=== PATIENT | female | born 1960 | race African-American/Black ===

== ENCOUNTER 2020-08-23 06:40 | Inpatient (IN) | payer OTHER ==
[~2020-08-23] VITALS: Ht 162.6 cm; Wt 103.9 kg
[~2020-08-23 06:40] MED LIST: ACETAMINOPHEN-1 EAC1 PO; ALBUTEROL INHAL17 GM IH; AMPICILLIN PO; ATIVAN0.5 MG; ATIVAN0.5 MG PO; AUGMENTIN 875875 M1; AVELOX400 MG PO; DILANTIN100 MG PO; DITROPAN XL5 M1 PO; HALDOL 0.5 MG0.5 MG PO; HALOPERIDOL; HALOPERIDOL 5 MG5 MG PO; HYDROCHLOROTH12.5 MG PO; HYDROCODON-ACE1 EAC7; HYDROCODON-ACE1 EACH PO; IBUPROFEN 400400 M1 PO; LORTAB 5 MG/5001 TA1 PO; MEDROL DOSPAK21 TA1 PO; MUCINEX DM ER1 EAC1 PO; NASONEX17 GM NASAL; OXYBUTYNIN 5 MG5 M1 PO; PHENOBARBITAL60 MG PO; PRINIVIL20 MG PO; PROAIR HFA8.5 GM PO; QUESTRAN LIGHT P4 GM PO; ROBITUSSIN DM118 ML; SENNA S TABLET1 EACH; TESSALON PERLE100 MG PO; ZANTAC 150MG T150 M1 PO; ZPAK PO
[2020-08-23 06:59] VITALS: BP 137/76
[2020-08-23 07:12] LABS: ABSOLUTE NEUTROPHILS 3.8 thou/uL (1.4-8.2); BASOPHILS 0.4 % (0.0-2.0); HEMATOCRIT 40.3 % (37.0-47.0); HEMOGLOBIN 13.6 gm/dL (12.0-15.0); LYMPHOCYTES 7.7 % (24.0-44.0); MCH 31.5 pg (26.0-34.0); MCHC 33.8 g/dL (28.0-37.0); MCV 93.3 fL (80.0-100.0); MONOCYTES 8.5 % (1.0-8.0); PLATELET COUNT 164 thou/uL (150-400); POLYS 83.4 % (36.0-66.0); RBC 4.32 mil/uL (4.20-5.00); RDW 13.6 % (10.5-14.5); WBC 4.5 thou/uL (4.0-11.0)
[2020-08-23 07:22] LABS: CALCIUM 8.6 mg/dL (8.5-10.1); POTASSIUM 3.3 mmol/L (3.5-5.1)
[2020-08-23 07:28] LABS: ALBUMIN 3.7 g/dL (3.4-5.0); DIRECT BILIRUBIN 0.1 mg/dL (<0.1-0.2); TOTAL BILIRUBIN 0.3 mg/dL (0.2-1.0); TOTAL PROTEIN 7.8 g/dL (6.4-8.2)
[2020-08-23 07:56] LABS: URINE BILIRUBIN NEGATIVE (Negative); URINE BLOOD NEGATIVE (Negative); URINE CLARITY CLEAR; URINE COLOR YELLOW; URINE GLUCOSE-RANDOM* NEGATIVE (Negative); URINE KETONES NEGATIVE (Negative); URINE LEUKOCYTES-REFLEX NEGATIVE (Negative); URINE NITRITE-REFLEX NEGATIVE (Negative); URINE PROTEIN (DIPSTICK) 2+ (Negative)
[2020-08-23 08:04] LABS: BACTERIA-REFLEX 1-9 Few /HPF (None Seen); CASTS None Seen /LPF (None Seen); CRYSTALS None Seen /LPF (None Seen); SQUAMOUS 4-10 Moderate /LPF (0-3); URINE RBC 0-2 Rare /HPF (0-2); URINE WBC-REFLEX 0-5 Rare /HPF (0-5)
[2020-08-23] MEDS ORDERED: LOSARTAN POTASS50 MG PO (09:15)
[2020-08-23] MEDS ORDERED: FUROSEMIDE 40 M40 MG PO (09:15)
[2020-08-23] MEDS ORDERED: POTASSIUM20 PO (09:16)
[2020-08-23] MEDS ORDERED: PRAVASTATIN SOD20 MG PO (09:17)
[2020-08-23] MEDS ORDERED: VENTOLIN HFA 1818 GM INH (09:17)
[2020-08-23 18:54] VITALS: BP 141/82
[2020-08-23 19:36] VITALS: BP 135/83
[2020-08-23 19:50] VITALS: BP 160/96
[2020-08-23 23:53] VITALS: BP 139/79
[2020-08-24 03:05] VITALS: BP 144/82
--- NOTE | 2020-08-24 05:30 | NUR ---
PT ARRIVED VIA CART, PLACED IN ROOM 351. ADMISSION ASSESSMENTS COMPLETED. NOTED TO BE FEVERISH OVERNIGHT. TYLENOL GIVEN FOR BACK PAIN. PT LESS FEVERISH THIS AM WITH 99.4 ORAL TEMP. SEE CHARTING.
[2020-08-24 07:39] VITALS: BP 126/65
[2020-08-24 07:49] LABS: ABSOLUTE NEUTROPHILS 2.8 thou/uL (1.4-8.2); BASOPHILS 0.3 % (0.0-2.0); HEMATOCRIT 41.6 % (37.0-47.0); HEMOGLOBIN 13.8 gm/dL (12.0-15.0); LYMPHOCYTES 18.9 % (24.0-44.0); MCH 31.3 pg (26.0-34.0); MCHC 33.2 g/dL (28.0-37.0); MCV 94.4 fL (80.0-100.0); MONOCYTES 5.7 % (1.0-8.0); PLATELET COUNT 165 thou/uL (150-400); POLYS 75.1 % (36.0-66.0); RBC 4.41 mil/uL (4.20-5.00); RDW 13.7 % (10.5-14.5); WBC 3.7 thou/uL (4.0-11.0)
[2020-08-24 07:58] LABS: PROTIME 10.1 Seconds (9.3-11.4)
[2020-08-24 08:06] LABS: ALBUMIN 3.4 g/dL (3.4-5.0); CALCIUM 8.3 mg/dL (8.5-10.1); CREATININE 0.8 mg/dL (0.6-1.0); DIRECT BILIRUBIN 0.1 mg/dL (<0.1-0.2); PHOSPHORUS 4.2 mg/dL (2.5-4.9); POTASSIUM 3.5 mmol/L (3.5-5.1); TOTAL BILIRUBIN 0.2 mg/dL (0.2-1.0); TOTAL PROTEIN 7.4 g/dL (6.4-8.2)
[2020-08-24 08:35] LABS: FIBRINOGEN 433.4 mg/dL (210-360)
[2020-08-24 14:54] VITALS: BP 145/83
--- NOTE | 2020-08-24 15:19 | NUR ---
INITIAL ASSESSMENT: ROCIO reviewed chart and spoke with nursing and attending physician. Pt was admitted from [facility] due to fever. Pt had positive COVID test and is in Enhanced Isolation. Pt is on 2L of O2. Pt is on IV abx and IV steroids. Course of Remdesivir started. ROCIO placed call to pt's room. No answer. Pt with hx of MR and schizophrenia. ROCIO spoke with James at [facility]. Pt is normally independent with ADLs and does not use any DME for ambulation or home O2. Pt has been using an inhaler. Pt's PCP is Dr. Mathew Hooks. Pt has had negative COVID tests at the facility. Per James, pt's cousin, Kimberlee, is involved in pt's care. ROCIO left voice message for Kimberlee. ROCIO is following to assist as needed with discharge planning.
--- NOTE | 2020-08-24 16:45 | NUR ---
RN ASSUMED PT'S CARE AT 0700AM, PT IS A&OX3, PT IS ON O2 2L/MIN/NC, PT IS CONTINUING IV ABX, PT'S VS ARE STABLE, PT DENIES SOB AND N/V BY THIS TIME.
[2020-08-24 21:19] VITALS: BP 125/78
[2020-08-25 03:55] VITALS: BP 120/75
--- NOTE | 2020-08-25 06:01 | NUR ---
PT MAKING POOR PROGRESS TOWARDS GOALS. NOTED FEVERS OVERNIGHT. PT HAD BLANETS REMOVED FROM BED WHICH LED TO PTS FEVER COMING DOWN. CONTINUE TO MONITOR AND ENCOURAGE LACK OF BLANKETS UNTIL FEVER RESOLVES.
[2020-08-25 06:04] LABS: ALBUMIN 2.9 g/dL (3.4-5.0); ANION GAP 11 mmol/L (7-16); BUN 11 mg/dL (7-18); CALCIUM 8.3 mg/dL (8.5-10.1); CHLORIDE 105 mmol/L (98-107); CO2 25 mmol/L (21-32); CREATININE 0.7 mg/dL (0.6-1.0); DIRECT BILIRUBIN < 0.1 mg/dL (<0.1-0.2); GLUCOSE 99 mg/dL (74-106); SGOT 88 U/L (15-37); SGPT 62 U/L (30-65); SODIUM 141 mmol/L (136-145); TOTAL BILIRUBIN 0.4 mg/dL (0.2-1.0); TOTAL PROTEIN 6.9 g/dL (6.4-8.2)
[2020-08-25 07:21] VITALS: BP 127/71
[2020-08-25 09:15] VITALS: BP 141/82
--- NOTE | 2020-08-25 14:33 | NUR ---
SW reviewed chart and spoke with nursing and attending physician. Pt remains in Enhanced Isolation due to COVID-19. Pt was febrile overnight and is on 2L of O2. Pt is on IV abx and IV steroids. Pt is completing course of Remdesivir. SW spoke with pt's cousin, Kimberlee, via phone. Introduced role of SW. Pt's cousin states that she and her mother are supportive and involved in pt's care. Pt makes her own medical/financial decisions. Pt with hx of MR. Mohan states that pt's sister, Ruthann Gaines, (Kimberlee's mother) is next of kin. Pt's parents and other siblings are . SW provided update to Kimberlee, as she was unaware of pt testing positive for COVID. SW discussed possible need for SNF placement prior to returning to [facility]. Pt's sister verbalized understanding. Therapy to be ordered to evaluate pt for discharge needs. SW is following to assist as needed with discharge planning.
--- NOTE | 2020-08-25 15:43 | NUR ---
RN ASSUMED PT'S CARE AT 0700AM, PT IS A&OX3, PT CAN FOLLOW COMMANDS, BUT PT RESPONSE SLOWING, PT IS CONTINUING IV ABX, AND O2 2L/MIN/NC, PT NEEDS HELP ADL, PT DENIES SOB AND PAIN AT THIS TIME.
[2020-08-25 15:54] VITALS: BP 109/59
[2020-08-25 19:49] VITALS: BP 132/80
[2020-08-26 03:22] VITALS: BP 140/86
--- NOTE | 2020-08-26 05:42 | NUR ---
PT MAKING SLOW PROGRESS TOWARDS GOALS. ON O2 AT 2L PER NC OVERNIGHT. DENIED ANY SOA WHILE AT REST. STATES SHE FEELS LIKE SHE IS BREATHING EASIER THAN YESTERDAY.
[2020-08-26 07:26] VITALS: BP 138/87
[2020-08-26 07:27] LABS: HEMATOCRIT 40.9 % (37.0-47.0); HEMOGLOBIN 13.4 gm/dL (12.0-15.0); MCH 31.2 pg (26.0-34.0); MCHC 32.8 g/dL (28.0-37.0); MCV 95.1 fL (80.0-100.0); RBC 4.3 mil/uL (4.20-5.00); RDW 13.7 % (10.5-14.5); WBC 2.9 thou/uL (4.0-11.0)
[2020-08-26 10:43] LABS: CALCIUM 8.5 mg/dL (8.5-10.1); CREATININE 0.7 mg/dL (0.6-1.0); DIRECT BILIRUBIN 0.2 mg/dL (<0.1-0.2); PHOSPHORUS 3.6 mg/dL (2.5-4.9); POTASSIUM 4.2 mmol/L (3.5-5.1); TOTAL BILIRUBIN 0.2 mg/dL (0.2-1.0); TOTAL PROTEIN 6.8 g/dL (6.4-8.2)
[2020-08-26 11:20] VITALS: BP 124/77
[2020-08-26 15:23] VITALS: BP 127/81
--- NOTE | 2020-08-26 15:37 | NUR ---
SW reviewed chart and spoke with nursing and attending physician. Pt remains in Enhanced Isolation due to COVID-19. Pt is afebrile and on 2L of O2. Pt is on IV abx and IV steroids. Pt is completing course of Remdesivir. PT/OT ordered today to evaluate pt for discharge needs. SW is following to assist as needed with discharge planning.
--- NOTE | 2020-08-26 16:15 | NUR ---
ASSUMED CARE OF PT AT 0700. PT ALERT AND ORIENTED X2 IN NO ACUTE DISTRESS VOICING NO PARTICULAR CONCERNS. BREATHING COMFORTABLY ON 2L NC. INCONTINENT OF URINE. IV ABX INFUSING PER ORDER.
[2020-08-26 19:42] VITALS: BP 127/75
--- NOTE | 2020-08-27 02:51 | NUR ---
ENCOURAGED TURNS, SHE IS NOT MOVVING MUCH IN THE BED. DENIES PAIN. SHE IS NEEDING TO BREATH DEEP AND COUGH. CONTINUES ON IV ANTIBIOTICS. RESTING QUIETLY AT THIS TIME.
[2020-08-27 03:30] VITALS: BP 141/90
--- NOTE | 2020-08-27 07:23 | NUR ---
BPCI LETTER ISSUED IN CONJUNCTION WITH ADMISSION PACKET COPY GIVEN BY REGISTRATION
[2020-08-27 08:37] LABS: HEMATOCRIT 44.3 % (37.0-47.0); HEMOGLOBIN 14.5 gm/dL (12.0-15.0); MCH 31.1 pg (26.0-34.0); MCHC 32.7 g/dL (28.0-37.0); RBC 4.67 mil/uL (4.20-5.00); RDW 13.9 % (10.5-14.5)
[2020-08-27 08:41] LABS: WBC 2.8 thou/uL (4.0-11.0)
[2020-08-27 08:56] LABS: ALBUMIN 3.1 g/dL (3.4-5.0); CALCIUM 8.6 mg/dL (8.5-10.1); CREATININE 0.5 mg/dL (0.6-1.0); DIRECT BILIRUBIN 0.1 mg/dL (<0.1-0.2); PHOSPHORUS 4.6 mg/dL (2.6-4.7); POTASSIUM 4.5 mmol/L (3.5-5.1); TOTAL BILIRUBIN 0.1 mg/dL (0.2-1.0); TOTAL PROTEIN 6.9 g/dL (6.4-8.2)
[2020-08-27 14:57] VITALS: BP 130/70
--- NOTE | 2020-08-27 17:49 | NUR ---
ASSUMED CARE OF PT AT 0700. PT ALERT AND ORIENTED TO SITUATION, IN NO ACUTE DISTRESS. UP TO CHAIR WITH MEALS. WEANED TO ROOM AIR. MAINTAIN SPO2 > 92%. DENIES SOA. LIKELY D/C TOMORROW.
[2020-08-27 20:15] VITALS: BP 146/77
[2020-08-28 04:06] VITALS: BP 160/101
--- NOTE | 2020-08-28 05:06 | NUR ---
continues on room air, o2 sats in the mid to upper 90's . denies pain. encouraged turning side to side. careplan reviewed. aware of possible discharge today, back to [facility].
[2020-08-28 06:24] LABS: HEMATOCRIT 39.4 % (37.0-47.0); HEMOGLOBIN 13.3 gm/dL (12.0-15.0); MCH 31.4 pg (26.0-34.0); MCHC 33.7 g/dL (28.0-37.0); MCV 93.2 fL (80.0-100.0); RBC 4.22 mil/uL (4.20-5.00); RDW 13.4 % (10.5-14.5); WBC 2.6 thou/uL (4.0-11.0)
[2020-08-28 06:57] LABS: ALBUMIN 2.8 g/dL (3.4-5.0); CALCIUM 8.5 mg/dL (8.5-10.1); CREATININE 0.5 mg/dL (0.6-1.0); DIRECT BILIRUBIN 0.1 mg/dL (<0.1-0.2); PHOSPHORUS 3.7 mg/dL (2.5-4.9); POTASSIUM 4.2 mmol/L (3.5-5.1); TOTAL BILIRUBIN 0.3 mg/dL (0.2-1.0); TOTAL PROTEIN 6.4 g/dL (6.4-8.2)
[2020-08-28 08:30] VITALS: BP 153/85
[2020-08-28 11:28] VITALS: BP 125/67
--- NOTE | 2020-08-28 12:54 | NUR ---
DISCHARGE NOTE: ROCIO reviewed chart and spoke with nursing and attending physician. Pt remains in Enhanced Isolation due to COVID-19. Pt is medically stable to discharge back to [facility] today. ROCIO spoke with James charge weigher at the facility to provide update. ROCIO spoke with Lan, [employer] ([phone]) to discuss pt returning. Pt is able to return to the facility, as they have other residents who are also COVID positive. Awaiting final discharge orders/summary at this time. Pt is able to be transported via w/c van. ROCIO placed call to pt's room. Line is busy. ROCIO left voice message for pt's cousin, Kimberlee, regarding discharge plan. Chart copy requested. ROCIO is following to finalize discharge.
[2020-08-28] MEDS ORDERED: CEFDINIR300 MG PO (13:00)
[2020-08-28] MEDS ORDERED: PREDNISONE 10 M10 M1 PO (13:02)
[2020-08-28] MEDS ORDERED: FUROSEMIDE 40 M40 MG PO (13:05)
[2020-08-28 13:56] VITALS: BP 125/67
[2020-08-28 15:20] VITALS: BP 127/77
== END 2020-08-28 17:21 | DRG 871 ==
LOC: ER 06:40 → 3W 08:36 → EROBS 08:36 → 3W 19:36
PROVIDERS: Emergency Medicine; Hospitalist; Specialist; ADMIT Internal Medicine; ATTEND Internal Medicine
PROC: XW033E5 Introduction of Remdesivir Anti-infective into Peripheral Vein, Percutaneous Approach, New Technology Group 5 (ICD-10-PCS; principal; 2020-08-23)
DX: A41.89 Other specified sepsis (principal); U07.1 COVID-19; J12.89 Other viral pneumonia; I10 Essential (primary) hypertension; E78.5 Hyperlipidemia, unspecified; G40.909 Epilepsy, unspecified, not intractable, without status epilepticus; F20.9 Schizophrenia, unspecified; E66.9 Obesity, unspecified; F79 Unspecified intellectual disabilities; Z79.899 Other long term (current) drug therapy; Z90.49 Acquired absence of other specified parts of digestive tract; Z68.37 Body mass index [BMI] 37.0-37.9, adult
CPT/HCPCS: 10080; 10879

== ENCOUNTER 2021-08-11 22:17 | Emergency (ER) | payer OTHER ==
[~2021-08-11] VITALS: Ht 162.6 cm; Wt 102.5 kg
--- NOTE | ~2021-08-11 | EMS ---
[address] [address] EMS Patient Care Report Name: NELDA FRAGOSO Room #: REG CLAYTON Plascencia#: [id number] Admission: 08/11/21 Attend Phys: Discharge: Date of : 58 Report #: [id number] THIS REPORT FOR: //name// Report Transmitted: 08/11/2021 21:42 EMS Care Summary [place], [place]/[facility] Incident [id number] @ 08/11/2021 21:48 Incident Location [address] [place] [address] Patient NELDA FRAGOSO Female, 61 Years 1960 Patient Address Patient History Diabetes,Hypertension (HTN),Seizures,Hyperlipidemia,Schizophrenia, Patient Allergies No known allergies, Patient Medications Pravastatin, Furosemide, Albuterol, Haloperidol, Oxybutynin, Phenobarbital, Spironolactone, Chief Complaint NO PT COMPLAINT Disposition Transported No Lights/[place] Dispatch Reason No Other Appropriate Choice Transported To [facility] Narrative M537 ARRIVED ON SCENE TO A ABNORMAL VITAL SIGNS CALL. PTS DOCTOR ON SCENE STATED THAT HE WAS DOING HER ASSESSMENT TODAY HE NOTICED THAT HER PULSE WAS ELEVATED AND THAT SHE HAD DIMINISHED LUNG SOUNDS IN THE LOWER LOBES AND WOULD LIKE HER SENT OUT FOR FURTHER ASSESSMENT. PT HAD NO MEDICAL COMPLAINTS. PT WAS LOADED ONTO STRETCHER AND SECURED WITH ALL STRAPS. PT LOADED INTO AMBULANCE AND VITALS ASSESSED ON SCENE. UPON ARRIVAL TO ED PT WAS BROUGHT INSIDE TO ROOM [address] [address] EMS Patient Care Report Name: NELDA FRAGOSO Room #: REG M.R.#: [id number] Admission: 08/11/21 Attend Phys: Discharge: Date of : 58 Report #: [id number] AND VERBAL REPORT GIVEN TO RN. PT CARE TRANSFERRED. M537 RETURN IN SERVICE. Initial Vitals @22:09P: 99,BP: 132/82,CO: 2,SpO2: 92, @22:02P: 90,R: 14,BP: 131/77,Pain: 0/10,GCS: 14,Glucose: 240,SpO2: 95,Revised Trauma: 12, Assessments @22:00MENTAL:Person Oriented,Place Oriented,SKIN:HEENT:LUNG SOUNDS:ABDOMEN:PELVIS//GI:EXTREMITIES:PULSE:NEURO: Impression Cardiac arrhythmia/dysrhythmia Procedures @22:00 ALS Assessment Response: UnchangedSucceeded @22:01 Stretcher Response: Unchanged Timeline 21:46,Call Received 21:46,Dispatch Notified 21:48,Dispatched 21:49,En Route 21:57,On Scene 21:59,At Patient 22:00,ALS Assessment,Response: UnchangedSucceeded, 22:01,Stretcher,Response: Unchanged 22:02,BP: 131/77 M,PULSE: 90,RR: 14 R,SPO2: 95 Ox,ETCO2: ,B,PAIN: 0,GCS: 14, 22:05,Depart Scene 22:09,BP: 132/82 M,PULSE: 99,RR: R,SPO2: 92 Ox,ETCO2: ,BG: ,PAIN: ,GCS: , 22:22,At Destination 22:40,Call Closed Disclaimer v1.1 Copyright 202 [employer] This EMS Care Summary contains data elements from the applicable legal record (which may be displayed differently). It is designed to provide pertinent information for the following purposes: continuity of care, clinical quality, and state data reporting. The complete legal record is available to ED staff and administrators of the receiving hospital in [employer]'s Patient Tracker. All data is provided "as is."
[~2021-08-11 22:17] MED LIST changes: +CEFDINIR300 MG PO; +FUROSEMIDE 40 M40 MG PO; +LOSARTAN POTASS50 MG PO; +POTASSIUM20 PO; +PRAVASTATIN SOD20 MG PO; +PREDNISONE 10 M10 M1 PO; +VENTOLIN HFA 1818 GM INH
[2021-08-11] MEDS ORDERED: ACETAMINOPHEN PO (22:21)
[2021-08-11] MEDS ORDERED: ENGERIX B IM (22:22)
[2021-08-11] MEDS ORDERED: SPIRONOLACTONE50 MG PO (22:22)
[2021-08-11 23:07] LABS: URINE BILIRUBIN NEGATIVE (Negative); URINE BLOOD NEGATIVE (Negative); URINE CLARITY CLEAR; URINE COLOR YELLOW; URINE GLUCOSE-RANDOM* NEGATIVE (Negative); URINE KETONES NEGATIVE (Negative); URINE LEUKOCYTES-REFLEX NEGATIVE (Negative); URINE NITRITE-REFLEX NEGATIVE (Negative); URINE PROTEIN (DIPSTICK) TRACE (Negative); URINE SPECIFIC GRAVITY >= 1.030 (1.005-1.035); URINE UROBILINOGEN 0.2 E.U./dl (0.2-1.0)
[2021-08-11 23:11] LABS: HEMATOCRIT 39.2 % (37.0-47.0); HEMOGLOBIN 13.2 gm/dL (12.0-15.0); MCH 31.5 pg (26.0-34.0); MCHC 33.6 g/dL (28.0-37.0); MCV 93.8 fL (80.0-100.0); PLATELET COUNT 188 thou/uL (150-400); RBC 4.17 mil/uL (4.20-5.00); RDW 13.4 % (10.5-14.5); WBC 4.4 thou/uL (4.0-11.0)
[2021-08-11 23:17] LABS: CALCIUM 8.4 mg/dL (8.5-10.1); CREATININE 0.9 mg/dL (0.6-1.0)
[2021-08-11 23:28] LABS: ALBUMIN 3.3 g/dL (3.4-5.0); TOTAL BILIRUBIN 0.2 mg/dL (0.2-1.0); TOTAL PROTEIN 7.2 g/dL (6.4-8.2)
[2021-08-12] MEDS ORDERED: NYSTATIN 100,0015 G1 TOP (00:06)
[2021-08-12 00:38] LABS: ABSOLUTE NEUTROPHILS 2.6 thou/uL (1.4-8.2)
[2021-08-12 00:39] LABS: ANISOCYTOSIS 1+; LARGE PLATELETS FEW; PLATELET ESTIMATE NORMAL; POIKILOCYTOSIS 1+
[2021-08-12 01:19] VITALS: BP 118/88
--- NOTE | 2021-08-12 08:04 | EKG ---
[place] [address] [facility] [place] [address] ELECTROCARDIOGRAM REPORT Name: NELDA FRAGOSO [id number] Admission: 08/11/21 Attend Phys: Discharge: 08/12/21 Date of : 58 Report #: [id number] [facility] ED Test Date: 2021-08-11 Test Time: 23:19:35 Pat Name: NELDA FRAGOSO Department: Room: Gender: F Developer [employer]: TARIK : 1960 Requested By: Maycol Carcamo Order Number: [id number] MD: Jeffery Ovalles Measurements Intervals [place] Rate: 85 P: 51 ID: [id number] QRS: 32 QRSD: 80 T: 31 QT: 389 QTc: 463 Interpretive Statements Sinus rhythm Consider right ventricular hypertrophy Compared to ECG 01/31/2013 21:20:57 No significant changes Electronically Signed On 08-12-2021 8:04:17 [employer] by Jeffery Ovalles [email or web address] <ELECTRONICALLY SIGNED> By: Jeffery Ovalles MD, [facility] 08/12/21 [id number] Jeffery Ovalles MD, FACC /EPI
== END 2021-08-12 01:20 | disposition home or self-care (01) ==
LOC: ER 22:17
PROVIDERS: Emergency Medicine
DX: B37.9 Candidiasis, unspecified (principal); I10 Essential (primary) hypertension; F20.9 Schizophrenia, unspecified; Z90.49 Acquired absence of other specified parts of digestive tract; Z79.51 Long term (current) use of inhaled steroids; Z79.1 Long term (current) use of non-steroidal anti-inflammatories (NSAID); Z79.891 Long term (current) use of opiate analgesic; Z79.899 Other long term (current) drug therapy